=== PATIENT | female | born 1995 | race Caucasian/White ===

== ENCOUNTER 2021-02-03 12:20 | Emergency (ER) | payer SELFPAY ==
[~2021-02-03] VITALS: Ht 157.5 cm; Wt 48.2 kg
[2021-02-03 12:21] VITALS: BP 118/79
[2021-02-03] MEDS ORDERED: VALA500T5 PO (12:28)
[2021-02-03] MEDS ORDERED: PRENTAB53 PO (12:28)
[2021-02-03 13:18] LABS: BASO % 0.3 % (0.0-1.0); EOS # 0.2 10^3/uL (0.0-0.5); EOS % 2.6 % (0.0-3.0); HEMATOCRIT 34.4 % (36.0-47.0); HEMOGLOBIN 11.3 g/dl (12.0-15.5); LYMPH # 1.9 10^3/uL (1.5-5.0); LYMPH % 22.6 % (24.0-44.0); MEAN CORPUSCULAR HEMOGLOBIN 29.3 pg (27.0-33.0); MEAN CORPUSCULAR HGB CONC 32.8 g/dl (32.0-36.5); MEAN CORPUSCULAR VOLUME 89.1 fl (80.0-96.0); MONO # 0.5 10^3/uL (0.0-0.8); MONO % 5.2 % (2.0-8.0); NEUTROPHILS # 5.9 10^3/uL (1.5-8.5); PLATELET COUNT, AUTOMATED 260 10^3/uL (150-450); RED BLOOD COUNT 3.86 10^6/uL (4.00-5.40); WHITE BLOOD COUNT 8.6 10^3/uL (4.0-10.0)
[2021-02-03 14:04] LABS: BLOOD UREA NITROGEN 7 MG/DL (7-18); CALCIUM LEVEL 8.5 MG/DL (8.5-10.1); CARBON DIOXIDE LEVEL 22 MEQ/L (21-32); CHLORIDE LEVEL 108 MEQ/L (98-107); CREATININE FOR GFR 0.44 MG/DL (0.55-1.30); GLOMERULAR FILTRATION RATE > 60.0 (>60); GLUCOSE, FASTING 81 MG/DL (70-100); HCG, SERUM QUANTITATIVE 116320 MIU/ML; POTASSIUM SERUM 3.5 MEQ/L (3.5-5.1); SODIUM LEVEL 137 MEQ/L (136-145)
== END 2021-02-03 13:45 | disposition left against medical advice (07) ==
LOC: M ED 12:20
DX: Z53.21 Procedure and treatment not carried out due to patient leaving prior to being seen by health care provider (principal)

== ENCOUNTER → 2021-04-28 | Outpatient (CLI) | payer OTHER ==
[~2021-04-28] MED LIST: PRENTAB53 PO; VALA500T5 PO
--- NOTE | 2021-04-28 16:51 | REP ---
INDICATION: ANATOMY. COMPARISON: None. TECHNIQUE: Routine ultrasound FINDINGS: Single living male fetus in vertex presentation showing normal movement and cardiac activity. The heart rate measures 130 beats per minute. Placenta anterior grade 0. Anatomic survey completed and showed no abnormality. Gestational age calculated by averaging the BPD, 6 cm, head circumference 23 cm, abdominal circumference 18 cm, femur length 4.2 cm. This a shunt a G average 24 weeks and 2 days with JIMY 08/16/2021. weight calculated at 658 g. IMPRESSION: Living male fetus vertex presentation. JIMY 08/16/2021. <Electronically signed by Clyde Escalera > 04/28/21 [id number]
== END ==
LOC: M RAD 13:19
PROVIDERS: ATTEND Registered Nurse Maternal Newborn
DX: Z34.82 Encounter for supervision of other normal pregnancy, second trimester (principal); Z3A.24 24 weeks gestation of pregnancy

== ENCOUNTER 2021-07-14 12:16 | Outpatient (CLI) | payer OTHER ==
[~2021-07-14] VITALS: Ht 157.5 cm; Wt 61.2 kg
[2021-07-14 12:36] VITALS: BP 129/80
[2021-07-14] MEDS ORDERED: HOME MED LIST COMPLETE! XX SCH (13:30)
--- NOTE | 2021-07-14 15:23 | IPNPDOC ---
Text Note Date of Service The patient was seen on 07/14/21. NOTE Vital Signs Label Value Date Time Patient Temperature 98.0 degrees F 07/14/21 1236 Temperature Source Temporal 07/14/21 1236 Pulse 122 07/14/21 1236 Respiratory Rate 16 bpm 07/14/21 1236 Blood Pressure Assessment 129/80 (96) 07/14/21 1236 Source Automatic Cuff (NIBP) 07/14/2021 1500 25 y.o AT 35 WEEKS LMP 11/12/2020 EARLY US 9.4 WEEKS FINAL JIMY 08/19/21 HISTORY OF ? SROM 4 DAYS AGO AT 1600 CLEAR FLUID SPOKE TO MD LAST NIGHT WAS TOLD TO COME TO LABOR FOR EVALUATION. DID NOT PAST HISTORY 01/20/2014 TOP WITH MTX 11/24/2019 39 WEEKS FEMALE 6 LBS 10 OZ PP DEPRESSION AND PELVIC HEMATOMA RISK FACTORS HSV GENITAL AND ORAL NO OUTBREAKS ON CONTINUOUS MEDICATION SHORT INTERVAL HX SELF HARM AND PP DEPRESSION EXAMINATION DRY PAD STERILE SPECULUM VAGINA NO FLUID LARGE MUCUS PLUG FERN NEGATIVE YEAST NEGATIVE NITRAZINE NEGATIVE BV NEGATIVE CERVIX CLOSED . US VERTEX ACTIVE FETUS LIMB MOTION NOTED PARTHA 3 QUADRANTS 13.38 CM SMALLEST VERTICAL 2.68 CM NST CATEGORY 1 STRIP MODERATE VARIABILITY BASELINE NORMAL ACCELERATIONS NOTED UTERINE IRRITABILITY NOT FELT BY PATIENT / PLAN KEEP APPOINTMENT FT DRUM OB DISCHARGED UNDELIVERED CULTURES FOR HSV AND GBS DONE Shayne Acosta MD Jul 14, 2021 15:21
== END 2021-07-14 15:02 | disposition home or self-care (01) ==
LOC: M LDO 12:16
PROVIDERS: ATTEND Obstetrics & Gynecology
DX: O26.893 Other specified pregnancy related conditions, third trimester (principal); O98.313 Other infections with a predominantly sexual mode of transmission complicating pregnancy, third trimester; O99.343 Other mental disorders complicating pregnancy, third trimester; F53.0 Postpartum depression; Z3A.35 35 weeks gestation of pregnancy
CPT/HCPCS: 59025; 87081; 87255; G0378; G0463

== ENCOUNTER → 2022-06-18 | Outpatient (REF) | payer OTHER ==
[2022-06-18 18:59] LABS: HCG, SERUM QUALITATIVE NEGATIVE (NEGATIVE)
[2022-06-18 19:01] LABS: HCG, SERUM QUANTITATIVE < 1.0 MIU/ML
== END ==
LOC: M LAB REF 18:05
PROVIDERS: ATTEND Physician Assistant
DX: N91.2 Amenorrhea, unspecified (principal)